=== PATIENT | female | born 1995 | race Caucasian/White ===

== ENCOUNTER 2024-12-22 03:44 | Emergency (ER) | payer BC, SELFPAY ==
[2024-12-22 03:50] VITALS: BP 158/87; PULSE 87; RESP 16; TEMP 36.7; O2SAT 99
[2024-12-22 05:34] VITALS: BP 129/69; PULSE 85; RESP 16; O2SAT 98
--- NOTE | 2024-12-22 05:34 | ED.EAR ---
HPI - Ear Problem General Chief complaint: Ear Stated complaint: ear pain Time Seen by Provider: 12/22/24 05:14 Source: patient Mode of arrival: ambulatory Limitations: no limitations History of Present Illness HPI Narrative: 29 yo Patient at approximately 28 weeks gestatational age ([place] [birth year]) presents with complaint of R ear pain, concerned for infection. Started having pain last night and planned to go to urgent care in the morning but continued to progress overnight. Described as constant and stablling. Took APAP about an hour before arrival and does note that the pain has started to improve while in the ED. Recently diagnosed with a left ear infection 2 weeks ago. Denies dizziness, nauesea. Took amoxicillin for previous ear infection. [place] like she might be having some drainage from the right ear. No complications during this . No history of hypertension prior to or during . ObGyn Dr Solano. No chills and technically afebriel though notes temperature was 99.7 at home. No rhinorrhea or cough. No sore throat. Related Data Allergies Allergy/AdvReac Type Severity Reaction Status Date / Time varicella virus vaccine live AdvReac Intermediate Rash Verified 12/22/24 03:45 [facility] Past Medical History Medical History (Updated 12/24/24 @ 16:37 by Stefanie Shine MD) Infection of left ear November 2024 and not yet delivered Exam Narrative: GENERAL: Well-appearing, well-nourished, and in no acute distress. HEAD: Normocephalic, atraumatic. EYES: Non injected, non icteric ENT: Nares clear, no rhinorrhea or epistaxis. Gross auditory acuity intact. R ear with some tenderness to palpation/manipulation of the pinna/auricle but without dawood erythema there. In the R auditory canal however there is erythema and drainage. Difficult to fully visualize TM on this side due to discomfort patient experiencing with exam. L ear normal. No dysphonia. NECK: Supple. No meningismus. CHEST: Speaking in full sentences. No respiratory distress. HEART: Regular rate and rhythm. . ABDOMEN: Soft. Gravid. Not peritoneal EXTREMITIES: Normal range of motion. No lower extremity edema. SKIN: Warm, dry, no rash. NEURO: No focal deficits. Alert and oriented. Answering questions. Following commands. Normal speech without aphasia or dysarthria. PSYCH: Normal mood and affect. Course Vital Signs Vital signs: Vital Signs Temperature 98.0 F 12/22/24 03:50 Pulse Rate 87 12/22/24 03:50 Respiratory Rate 16 12/22/24 03:50 Blood Pressure 158/87 H 12/22/24 03:50 Pulse Oximetry 99 12/22/24 03:50 Oxygen Delivery Room Air 12/22/24 03:50 Temperature 98.0 F 12/22/24 03:50 Pulse Rate 90 12/22/24 06:13 Respiratory Rate 16 12/22/24 06:13 Blood Pressure 123/77 12/22/24 06:13 Pulse Oximetry 98 12/22/24 06:13 Oxygen Delivery Room Air 12/22/24 03:50 Medical Decision Making MDM Narrative Medical decision making narrative: female at gestational age 28 weeks and 2 days by stated estimated due date 03/11/2025 presents with acute onset R ear pain concerning for infection. Recent infection in L ear , completing antibiotics. Her plan was to go to in the morning but pain progressed. 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 In the emergency department she is afebrile with vital signs notable for hypertension initially. Difficult to fully visualize R TM based on pain but highly suspicious for otitis externa given otalgia, tenderness of the pinna, ear canal edema and erythema as well as otorrhea. Repeat blood pressure is checked and is markedly improved, now 129/69. Low suspicion for preeclampsia and I suspect that the initial BP was due to pain and concern. Will defer further work up. Prescribed ofloxacin and APAP. Advised follow up with her ObGyn. In addition, given 2 ear infections within a month in an otherwise healthy adult female (other than mild immunosuppresion in the setting of ), given contact information for ENT. Stable for discharge. Differential Diagnosis Differential Diagnosis: otitis media, otitis externa, necrotizing; considered mastoiditis, pharyngitis, acute viral syndrome, etc. Vital Signs Vital Signs: Vital Signs Temperature 98.0 F 12/22/24 03:50 Pulse Rate 87 12/22/24 03:50 Respiratory Rate 16 12/22/24 03:50 Blood Pressure 158/87 H 12/22/24 03:50 Pulse Oximetry 99 12/22/24 03:50 Oxygen Delivery Room Air 12/22/24 03:50 Temperature 98.0 F 12/22/24 03:50 Pulse Rate 90 12/22/24 06:13 Respiratory Rate 16 12/22/24 06:13 Blood Pressure 123/77 12/22/24 06:13 Pulse Oximetry 98 12/22/24 06:13 Oxygen Delivery Room Air 12/22/24 03:50 Discharge Plan Discharge Clinical Impression: Acute otitis externa of right ear, Third trimester at less than 36 weeks Patient Disposition: Home Condition: Stable Instructions: Antibiotic Form, Earache (ED), at 27 to 30 Weeks (ED) Additional Instructions: Abstain from water sports for 7-10 days. Avoid Q-tip or other foreign objects in the ear. Acetaminophen is safe to take during . Instill the antibiotic medication/drops into the ear while laying on your side and hold position for 3-5 minutes. Given that this represents your 2nd ear infection, I recommend you follow up with PCP or ENT in 1-2 weeks. The name of a doctor is listed below. Keep your upcoming OB appointment. Return to the emergency department with any new or worsening symptoms. Patient Language: Estonian Prescriptions: New acetaminophen 500 mg capsule 1,000 mg PO Q6H PRN (Reason: pain) Qty: 30 0RF ofloxacin 0.3 % drops 5 drp RIGHT EAR BID 7 Days Qty: 5 0RF Follow-up/Referrals: Talat Solano MD [Physician] - Calderon Howard MD [Physician] - (ear/nose/throat (ENT)) PHYSICIAN,CONSERVATION ENFORCEMENT OFFICER [Primary Care Provider] - Issa Gonzalez MD [Physician] - (family practice/primary care) Stand Alone Forms: Work/School Release IP Time of Disposition: 05:55
--- OUTSIDE RECORDS SUMMARY | 2024-12-22 05:45 | XMS_ITS | Data Portability ---
Author Organization [facility] Address [address] [place] [address] [place] [address] Assessment Encounter Date Assessment Date Assessment LastModified by Organization Details LastModified Time 10/25/2024 10/25/2024 Patient is ___weeks . Discussed plan. [email or web address] Not available 10/25/2024 10:43:46 11/21/2024 11/21/2024 Patient is ___weeks . Discussed plan. Not available 11/21/2024 16:46:20 12/19/2024 12/19/2024 Patient is ___weeks . Discussed plan. Not available 12/19/2024 16:01:56 Plan of Treatment Reminders Order Date Submit Date Provider Last Modified By Organization Details Last Modified Time Details Appointments OB ROUTINE 2024 09:15A Navneet SOLANO MD Not available Not available Not available OB ROUTINE 2024 09:15A Navneet SOLANO MD Not available Not available Not available Lab None recorded. Referral None recorded. Procedures None recorded. Surgeries None recorded. Imaging US, obstetric , 2nd or 3rd trimester 2024 025 [email or web address] [place], [address], [place], [address], 10/25/2024 20:06:33 Medication Orders None recorded. Patient TargetsNo targets recorded. Patient InstructionsNo instructions recorded. Reason for Referral None Reported. Results Created Date Observation Date Name Description Value Unit Range Abnormal Flag Note LastModifiedBy Organization Detail LastModifiedTime 09/08/192025 [UNIT Y] ANEUP LOIDY NIPT fraction 6.4% normal Not Available [facility] [address] [facility], [place], [address], 09/07/2024 03:23:33 09/08/19 25 09/07/2024 [UNIT Y] ANEUP LOIDY NIPT 22Q11.2 microdeletio n LOW RISK <1 in 10,000 normal Not Available [facility] [address] [facility], [place], [address], 09/07/2024 03:23:33 09/08/19 25 09/07/2024 [UNIT Y] ANEUP LOIDY NIPT sex chromosome aneuploidy NOT DETECT ED normal Not Available [facility] [address] [facility], [place], [address], 09/07/2024 03:23:33 09/08/19 25 09/07/2024 [UNIT Y] ANEUP LOIDY NIPT monosomy X LOW RISK <1 in 10,000 normal Not Available [facility] [address] [facility], [place], [address], 09/07/2024 03:23:33 09/08/19 25 09/07/2024 [UNIT Y] ANEUP LOIDY NIPT trisomy 13 LOW RISK <1 in 10,000 normal Not Available [facility] [address] [facility], [place], [address], 09/07/2024 03:23:33 09/08/19 25 09/07/2024 [UNIT Y] ANEUP LOIDY NIPT trisomy 18 LOW RISK <1 in 10,000 normal Not Available [facility] [address] [facility], [place], [address], 09/07/2024 03:23:33 09/08/19 25 09/07/2024 [UNIT Y] ANEUP LOIDY NIPT trisomy 21 LOW RISK <1 in 10,000 normal Not Available [facility] [address] [facility], [place], [address], 09/07/2024 03:23:33 09/08/19 25 09/07/2024 [UNIT Y] ANEUP LOIDY NIPT sex FEMALE normal Not Available [facility] [address], [place], [address], 09/07/2024 03:23:33 09/08/19 25 09/07/2024 [UNIT Y] ANEUP LOIDY NIPT gestation SINGLE TON normal Not Available [facility] [address], [place], [address], 09/07/2024 03:23:33 09/08/19 25 09/07/2024 [UNIT Y] ANEUP LOIDY NIPT for detailed report, see pdf See PDF normal Not Available [facility] [address] [place], [address], 09/07/2024 03:23:33 09/01/19 25 08/31/2024 CULTU RE: URINE result report SEE RESULT S BELOW abnormal Test: Cultu re: Urine Speci men Sourc e: Urine - Clean Catch Speci men Type: Urine Speci men Date: 1341 Resul t Date: 9 Resul t Statu s: Final resul t Abnor mal: Yes Bobby romero Lab: [facility] [address] [facility] [address] Tel: CULTU RE ----- ----- ----- --- >100, 000 CFU/m l Esche vinny a coli (Abno rmal) OSWALDOCE PTIBI LITY ----- ----- ----- --- Esche vinny a coli METHO D SUSY ----- ----- ----- ----- ----- ---- ----- ----- ----- ----- ----- AMPIC ILLIN <=8 ug/mL Susce ptibl e AMPIC ILLIN /SULB ACTAM <=4 ug/mL Susce ptibl e AZTRE ONAM <=4 ug/mL Susce ptibl e CEFAZ CEASAR <=2 ug/mL Susce ptibl e CEFEP TARIQ <=2 ug/mL Susce ptibl e CEFTA ZIDIM E <=1 ug/mL Susce ptibl e CEFTR IAXON E <=1 ug/mL Susce ptibl e CIPRO FLOXA MINI <=0.2 5 ug/mL Susce ptibl e GENTA MICIN <=2 ug/mL Susce ptibl e LEVOF LOXAC IN <= 0.5 ug/mL Susce ptibl e MEROP ENEM <=1 ug/mL Susce ptibl e NITRO FURAN TOIN <=32 ug/mL Susce ptibl e PIPER ACILL IN/TA ZOBAC BLANCAS <=8 ug/mL Susce ptibl e TOBRA MYCIN <=2 ug/mL Susce ptibl e TRIME THOPR IM/MCCLELLAN LFAME THOXA ZOLE <=0.5 ug/mL Susce ptibl e Not Available [facility] (Lab) [address] [facility], [place], [address], 09/02/2024 23:02:41 09/01/19 25 08/31/2024 drug scree n, urine Amphetamines : negati ve Not Available [place] [address], [place], [address], 08/31/2024 14:25:23 09/01/19 25 08/31/2024 drug scree n, urine Cannabinoids : negati ve Not Available [place] [address], [place], [address], 08/31/2024 14:25:23 09/01/19 25 08/31/2024 drug scree n, urine Cocaine: negati ve Not Available [place] [address], [place], [address], 08/31/2024 14:25:23 09/01/19 25 08/31/2024 drug scree n, urine Opiates: negati ve Not Available [place] [address], [place], [address], 08/31/2024 14:25:23 09/01/19 25 08/31/2024 drug scree n, urine Phenocyclidi ne: negati ve Not Available [place] [address], [place], [address], 08/31/2024 14:25:23 09/01/19 25 08/31/2024 drug scree n, urine Barbiturates : negati ve Not Available [place] [address], [place], [address], 08/31/2024 14:25:23 09/01/19 25 08/31/2024 drug scree n, urine Benzodiazepi amanda: negati ve Not Available [place] [address], [place], [address], 08/31/2024 14:25:23 09/01/19 25 08/31/2024 drug scree n, urine Ethanol: negati ve Not Available [place] [address], [place], [address], 08/31/2024 14:25:23 09/01/19 25 08/31/2024 drug scree n, urine Hallucinogen s: negati ve Not Available [place] [address], [place], [address], 08/31/2024 14:25:23 09/01/19 25 08/31/2024 drug scree n, urine Inhalants: negati ve Not Available [place] [address], [place], [address], 08/31/2024 14:25:23 09/01/19 25 08/31/2024 drug scree n, urine Anabolic Steroids: negati ve Not Available [place] [address], [place], [address], 08/31/2024 14:25:23 09/01/19 25 08/31/2024 US, obste tric, nucha l trans lucen cy No observ ation [facility]. [email or web address] [address], [place], [address], 08/31/2024 17:49:37 09/01/19 25 08/31/2024 US, obste tric, follo w-up No observ ation record ed. [email or web address] [address], [place], [address], 09/03/2024 22:38:24 10/26/19 25 10/25/2024 US, obste tric, 2nd or 3rd trime ster No observ ation record ed. [email or web address] [place] [address], [place], [address], 10/25/2024 12:50:56 10/26/19 25 10/25/2024 US, obste tric, follo w-up No observ ation record ed. [email or web address] [address], [place], [address], 11/15/2024 15:19:40 Result Notes None recorded. Problems Name Problem SNOMED Code Status Onset Date Resolution Date Notes Provider Name and Address Organization Details Recorded Time Body mass index 30+ - obesity 082612489 Active Weekly testing at 37wks Ada Cev[facility] 12:10:25 Body mass index 30+ - obesity 518616751 Active Weekly testing at 37wks Ada zavala [facility] 12:10:25 99250127 Active 2024 Bibiana zavala, [facility] 5 11:29:12 Problem Notes None recorded. Procedures Surgical History Date Name Laterality Status Provider Name and Address Organization Details Recorded Time 04/04/20 24 Date of Last Pap Smear completed Bibiana Vargas [facility] 08/02/2024 10:05:31 03/23/20 24 Nexplanon Removal completed SAUL STRINGER MD [address], [place], [address], [facility] 03/23/2024 15:00:27 03/25/20 21 Control Implant Insertion completed Rayne Machado [facility]- [address], [place], [address], [facility] 03/25/2021 16:01:20 05/30/19 13 extraction of wisdom tooth completed Gabriela Rey [facility] 03/21/2023 12:12:57 05/30/19 09 Appendectomy completed Gabriela Rey [facility] 03/10/2021 11:47:31 05/30/19 06 tonsilectomy/mounika noids completed Gabriela Rey [facility] 03/10/2021 11:48:41 Imaging Results None recorded. Procedure Notes None recorded. Medical Equipment None Reported. Allergies Allergen ID Allergen Name Allergen Category Reaction Reaction Severity Criticality Documentation Date Start Date Code Code System Note Provider Name and Address Organization Details Recorded Time varicella zoster immune globulin (human) medicatio n swelling Not available Not available 03/10/2021 84877 6 RxNorm Gabriela zavala, [facility] 11:42:33 Medications Name Sig Start Date Stop Date Status Note LastModified by Organization Details LastModified Time cyclobenzap rine 10 mg tablet TAKE 1 TABLET BY MOUTH THREE TIMES DAILY NEEDED FOR MUSCLE SPASM 03/16 completed Not Available Not Available Not Available ibuprofen 800 mg tablet TAKE 1 TABLET BY MOUTH THREE TIMES DAILY NEEDED FOR PAIN 03/16 completed Not Available Not Available Not Available metronidazo le 500 mg tablet Take 1 tablet twice a day by oral route for 7 days. 03/23 completed Not Available Not Available Not Available amoxicillin 875 mg tablet TAKE 1 TABLET BY MOUTH TWICE DAILY FOR 10 DAYS active Not Available Not Available No t Available cephalexin 500 mg capsule TAKE 1 CAPSULE BY MOUTH FOUR TIMES DAILY FOR 7 DAYS 11/21 completed Not Available Not Available Not Available promethazin e 25 mg tablet Take 1 tablet every 4 hours by oral route. 08/31 completed Not Available Not Available Not Available Diflucan 200 mg tablet 1 tablet every other day x 3 doses 03/23 completed Not Available Not Available Not Available nitrofurant oin monohydrate /macrocryst als 100 mg capsule TAKE 1 CAPSULE BY MOUTH EVERY 12 HOURS FOR 7 DAYS 11/21 completed Not Available Not Available Not Available active Not Available Not Avai lable Not Available Vyvanse 30 mg capsule TAKE 1 CAPSULE BY MOUTH DAILY 10/17 completed Not Available Not Available Not Available lisdexamfet amine 50 mg capsule TAKE 1 CAPSULE BY MOUTH EVERY MORNING NEEDED 11/21 completed Not Available Not Available Not Available Nexplanon 68 mg subdermal implant Inject by subcutane ous route. 04/04 completed Not Available Not Available Not Available ID NOW COVID-19 Test Kit TEST DIRECTED 03/15 completed Not Available Not Available Not Available Vitals Date Recorded Body height Body height Body mass index (BMI) Body weight Systolic And Diastolic Provider Name and Address Organization Details Last Updated DateTime 09/27/2024 179.07 cm 179.07 cm 37.8 kg/m2 660690.1 6 g 124/72 mm[Hg] Bibiana Vargas [facility] 10:44:03 Date Recorded Body height Body mass index (BMI) Body weight Systolic And Diastolic Provider Name and Address Organization Details Last Updated DateTime 10/25/2024 179.07 cm 39.7 kg/m2 899799.74 g 126/84 mm[Hg] DIANA Hercules [facility] 10/25/2024 10:44:42 Date Recorded Body weight Systolic And Diastolic Provider Name and Address Organization Details Last Updated DateTime 11/21/2024 204087.00933 g 130/83 mm[Hg] Bibianabessie Choudhuryer [facility] 11/21/2024 16:46:45 Date Recorded Body weight Systolic And Diastolic Provider Name and Address Organization Details Last Updated DateTime 12/19/2024 541271.98425 g 132/80 mm[Hg] Bibiana Sam [facility] 12/19/2024 16:12:34 Social History Question Answer Notes LastModified by Organizat ion Details LastModified Time Tobacco Smoking Status Never Smoker [facility] 03/16/2022 14:11:28 Do You Have An Advance Directive? No Information n ot available 03/16/2022 If You Are , What Was Your Level Of Alcohol Consumption Prior To ? Occasional Information not available 03/16/2022 How Many Years Have You Consumed Alcohol? 8 Information not available 03/16/2022 Are You Blind Or Do You Have Difficulty Seeing? No [email or web address] Information n ot available 03/10/2021 What Is Your Level Of Caffeine Consumption? Occasional [email or web address] Information not available 03/10/2021 How Much Tobacco Do You Chew? None Information not available 03/16/2022 In The 14 Days Before Symptom Onset, Have You Had Close Contact With A Laboratory-confirm ed COVID-19 While That Case Was Ill? No [email or web address] Information n ot available 03/10/2021 In The 14 Days Before Symptom Onset, Have You Had Close Contact With A Person Who Is Under Investigation For COVID-19 While That Person Was Ill? No [email or web address] Information not available 03/10/2021 Have You Been To An Area Known To Be High Risk For COVID-19? No [email or web address] Information not available 03/10/2021 Are You Deaf Or Do You Have Serious Difficulty Hearing? No [email or web address] Information not available 03/10/2021 What Type Of Diet Are You Following? REGULAR [email or web address] Information n ot available 03/10/2021 What Is The Highest Grade Or Level Of School You Have Completed Or The Highest Degree You Have Received? [id number] Information not available 03/16/2022 Are There Any Guns Present In Your Home? No Information not available 03/16/2022 Have You Ever Been Counseled For Unhealthy Alcohol Use? No Information not available 03/16/2022 Do You Use Protection During Sex? Always Information not available 03/16/2022 Do You Use Your Seat Belt Or Car Seat Routinely? Yes [email or web address] Information not available 03/10/2021 Do You Have Smoke And Carbon Monoxide Detectors In Your Home? Yes [email or web address] Information not available 03/10/2021 At What Age Did You Start Smoking Tobacco? 21 Information not available 03/16/2022 How Much Tobacco Do You Smoke? No Information not available 03/16/2022 Do You Use Sunscreen Routinely? Yes [email or web address] Information not available 03/10/2021 Has Tobacco Cessation Counseling Been Provided? No Information not available 03/16/2022 How Many Years Have You Smoked Tobacco? 1 Information not available 03/16/2022 Have You Used IV Drugs? No Information not available 03/16/2022 Sex: Female Functional Status Question Answer Note LastModified by Organizat ion Details LastModified Time Do you use any illicit or recreational drugs? No [email or web address] Information not available 03/10/2021 Do you or have you ever used any other forms of tobacco or nicotine? No Information not available 03/16/2022 What is your level of alcohol consumption? Occasional [email or web address] Information not available 03/10/2021 Are you able to walk? [email or web address] Information not available 03/10/2021 What is your occupation? [employer] Information not available 03/16/2022 What is your exercise level? Moderate Information not available 03/16/2022 Mental Status Question Answer Note LastModified by Organization D etails LastModified Time Do you feel stressed (tense, restless, nervous, or anxious, or unable to sleep at night)? [id number] Information not available 03/16/2022 Family History Relationship Description Onset Age of this Age Resolved Age Notes LastModified by Organization Details LastModified Time Maternal Grandmother Malignant tumor of breast [email or web address] Not available 03/10 11:45:12 Maternal Grandmother Malignant neoplasm of lung Not available 03/10 11:45:23 Maternal Grandmother Malignant neoplasm of brain [email or web address] Not available 2021 13:55:05 Mother Cyst of ovary Not available 2021 13:55:05 Medical History Condition Response Allergies (Food, seasonal, environmental ) N Other Y Breast Cancer N Drug/Latex Allergies/Reactions Y Blood Transfusion N Dermatologic Disorders N Lung Disease N Defects or Inherited Disease N Breast Problem N Gestational Diabetes N Hematologic disorders N Anesthesia Complications N History of STI N Deep Vein Thrombosis N Polycystic ovary syndrome N Anxiety Disorder N Autoimmune disease N Arthritis N Infertility N Polyps N Acid Reflux (GERD) N History of abnormal pap N Cancer N Stroke N Varicosities N Neurologic/Epilepsy N Endometriosis N High Cholesterol N Headaches N Fibromyalgia N Kidney Disease N Heart Problems N Kidney or Bladder Problems N Thyroid Problems N GI Problems N Eating Disorder N Anemia N Art (IVF or FET) N Psychiatric Illness N Ovarian Cancer N Diabetes N Pulmonary (TB, Asthma) N Hepatitis/Liver Disease N No Past Medical History N Eczema N Urinary Tract Infection N Abuse/Domestic Violence N Asthma N Trauma/Violence N Depression/ depression N Heart Disease N Pre-Eclampsia N Hypertension N Osteoporosis N Thrombophilias N Gynecological History Statement/Question Response Date of Last Mammogram Flow Moderate Date of LMP 05/30/2024 N Was last menstrual period normal Y STIs/STDs N Date of Last Colonoscopy Desired Control Method Abnormal Pap N On BCP's at Conception? N Colposcopy HPV Vaccine N Duration of Flow (days) 4 Current Control Method Are cycles usually normal N Frequency of Cycle (Q days) Sexually Active? Y Menses Monthly N Date of DEXA bone scan Age of first menstrual cycle 13 Date of Last Pap Smear 04/04/2024 Sexual Problems? N LMP Approximate N Obstetrics History GPAL:G 1 P 0 0 0 0 Type Value Living 0 Total 1 Past Encounters Encounter ID Performer Location Encounter Start Date Encounter Closed Date Diagnosis/Indication Diagnosis SNOMED-CT Code Diagnosis ICD10 Code Diagnosis Note [id number] Rayne Machado , [facility] [address] [place] [id number] 03/10/2021 11:19:30 03/12/2021 11:13:10 Gynecologic examination 49978419 Z01.419 Take Calcium with Vitamin D 1200mg daily if not receiving in daily diet. It is strongly advised to have an annual flu shot and up can obtain at most pharmacies . If you have not had a TDap shot in the last 10 years you should obtain one as well. Discussed with patient & provided with informatio n regarding Gardisil vaccine to prevent the 4 strains for HPV that cause cervical cancer if under age 26. Encourage safe sexual practices, to use condoms and limit partners if not already in a monogamous relationsh ip. Do monthly self breast exams. Have mammogram yearly or every other year depending on family history. BRCA testing is now available for patients with strong genetic history of female cancer. If interested contact the office. Engage in daily exercise of low impact aerobic exercise 45-60 minutes 4-5 times weekly. Avoid tobacco and illicit drugs as well as using moderation with alcohol intake less than 1-2 8 oz beverages daily. This lifestyle behavior pattern will lead to less health conditions and longer life span. If BMI greater than 25 weight watchers or dietary consult advised. Patient received above instructio ns, and questions have been answered. If you have any questions please call or respond to this email. Patient was made aware of the patient portal and may obtain a paper copy of today's plan if desired. Pap sentSTD sent Vaginitis 69985359 N76.0 Prominent vaginal d/c likely BV/Yeast.L ikely cause of pain with intercours e.Will treat.Test STDRTO x 2wks to ensure no other contributi ng factors to dyspareuni a as exam was somewhat limited today b/c so uncomforta ble. [id number] Rayne Machado , [facility] [address] [address] 03/25/2021 14:47:32 03/25/2021 16:06:39 Contraception care management 934965957 Z30.9 Discussed all control options in depth and pt is interested in Nexplanon. Discussed all risks and benefits including irregular unschedule d bleeding. Pt verbalized understand ing and would like to proceed. She is aware that she needs to call us on the 1st day of her period to schedule placement. Currently on her menstrual cycle.We Re-reviewe d nexrudy & she would like to proceed today. Note: Pain with intercours e has resolved after treatment for BVYeast. Implantati on of subcutaneous contraceptive 923651222 Z30.9 Patient is here currently on her menses. She was given all the r/b/a of placement of the Nexplanon device and has signed the consent. She is fully aware of all possible side effects of the device and has decided to move forward with placement. Insertion site was cleansed with betadine and 3cc lidocaine used for anesthesia . Device was placed in the left arm per usual fashion w/o complicati on and patient instructed to f/u in one month or earlier if there are any si/sx of infection or hypersensi tivity at the insertion site RTO x 3mos Screening procedure 2012 5006 Z13.9 [id number] Rayne Machado [facility] [address] [address] 03/16/2022 13:54:11 03/16/2022 14:40:14 Gynecologic examination 74604685 Z01.419 Z11.3 Z11.8 Take Calcium with Vitamin D 1200mg daily if not receiving in daily diet. It is strongly advised to have an annual flu shot and up can obtain at most pharmacies . If you have not had a TDap shot in the last 10 years you should obtain one as well. Discussed with patient & provided with informatio n regarding Gardisil vaccine to prevent the 4 strains for HPV that cause cervical cancer if under age 26. Encourage safe sexual practices, to use condoms and limit partners if not already in a monogamous relationsh ip. Do monthly self breast exams. Have mammogram yearly or every other year depending on family history. BRCA testing is now available for patients with strong genetic history of female cancer. If interested contact the office. Engage in daily exercise of low impact aerobic exercise 45-60 minutes 4-5 times weekly. Avoid tobacco and illicit drugs as well as using moderation with alcohol intake less than 1-2 8 oz beverages daily. This lifestyle behavior pattern will lead to less health conditions and longer life span. If BMI greater than 25 weight watchers or dietary consult advised. Patient received above instructio ns, and questions have been answered. If you have any questions please call or respond to this email. Patient was made aware of the patient portal and may obtain a paper copy of today's plan if desired. Pap/hpv due q3yrs per asccp unless otherwise indicated STD Screen declined Genetic Screen discussed Colon Screen na Dexa Screen na Routine Labs PCPMammo [id number] SAUL STRINGER MD [place] [address] [address] 03/23/2024 14:25:14 03/23/2024 15:06:33 Removal of subcutaneous contraceptive 797292860 Z30.46 - Nexplanon removed intact without any issues- discussed quick return to fertility after removal- discussed most couples will be within 1 year of TTC- patient to call for workup sooner if not having regular cycles [id number] JUANITA Carballo [place] [address] [address] 03/21/2023 11:58:58 03/21/2023 12:39:03 Gynecologic examination 94416583 Z01.419 WWEBC - nexplanon, happy with this methodinse rted 03/25/2021 , will 03/25/2024 pap due 02/2024STI testing declineden couraged to est care with PCP - PCP list givenRTC in 1 yr or sooner if needed Take Calcium with Vitamin D daily if not receiving in daily diet.It is strongly advised to have an annual flu shot and up can obtain at most pharmacies . If you have not had a TDap shot in the last 10 years you should obtain one as well.Discu ssed with patient & provided with informatio n regarding Gardisil vaccine to prevent the 4 strains for HPV that cause cervical cancer if under age 26.Encoura ge safe sexual practices, to use condoms and limit partners if not already in a monogamous relationsh ip.Do monthly self breast exams.Have mammogram yearly or every other year depending on family history. BRCA testing is now available for patients with strong genetic history of female cancer. If interested contact the office.Eng age in daily exercise of low impact aerobic exercise 45-60 minutes 4-5 times weekly. Avoid tobacco and illicit drugs as well as using moderation with alcohol intake less than 1-2 8 oz beverages daily. This lifestyle behavior pattern will lead to less health conditions and longer life span. If BMI greater than 25 weight watchers or dietary consult advised.Fazal recio received above instructio ns, and questions have been answered. If you have any questions please call or respond to this email.Roxie jeff was made aware of the patient portal and may obtain a paper copy of today's plan if desired. [id number] JUANITA Carballo [place] [address],[place] [address] 10/18/2023 12:02:24 10/18/2023 12:51:01 Tenderness of breast [id number] N64.4 recommende d right breast u/sorder given to pt, encouraged pt to schedule Contracept ion care management [id number] Z30.9 BC options reviewedde sires nexplanon removal, can schedule to RTCquestleeroy ns answered Time spent in visit is a total of 25 mins with at least 50% of visit consisting of counseling and review of plan of care. Breast lump [id number] N63 .0 [id number] Talat Solano MD [place] [address] [address] 04/04/2024 12:11:11 04/04/2024 12:58:17 Gynecologic examination [id number] Z01.419 Annual gynecologi andre exam performed. Patient will come back in a year unless there are new symptoms. Suggest Calcium with Vitamin D if not eating in diet. Patient advised to get annual flu shot. Recommend yearly physicals and perform monthly breast exams. Genetic testing is available for patients with family history of cancer. Engage in safe sexual practices, use condoms. Encouraged to have daily exercise. Avoid tobacco and illicit drugs, moderation of alcohol. If BMI greater than 25 dietary consult advised. If you have any questions please call or email. Pap smear- pap w/ HPV reflex collected today. If WNL, will repeat in 3-5 years per ASCCP guidelines . laboratory evaluation - PCP STI testing - declined Recommende d that pt start PNV daily and track cycles with Shaka Porter. Discussed that cycles may be irregular for a few months after having implant removed. [id number] Talat Solano MD [place] [facility] [address] [address] 07/17/2024 09:35:45 07/17/2024 10:30:30 screening [id number] Z36.87 Z3A.01 [id number] Talat Solano MD [place] [facility] [address],[place] [address] 08/02/2024 09:12:39 08/02/2024 10:10:10 [id number] Talat Solano MD [place] [facility] [address],[place] [address] 08/02/2024 09:13:02 08/02/2024 10:57:06 Nausea and vomiting [id number] R11.2 Amenorrhea [id number] N91. 2 this patient is a 28-year-ol d female who presents for amenorrhea . She is a positive test. Ultrasound revealed a 1st trimester gestation. Patient has no complaints . We talked about early care. Talked about genetic screening. We talked about her ultrasound results. We talked about the 12 week ultrasound that has genetic screening components . She was given recommenda tions on exercise, diet, over-the-c ounter medication s. We reviewed her obstetric history. We reviewed her medical history. We reviewed her social history. She will begin routine care at her next visit. [id number] MD Ivan Pearl [address],[place] [address] 08/31/2024 09:52:09 08/31/2024 10:36:11 screening [id number] Z36.82 Z3A.12 [id number] Talat Solano MD [place] [address],[place] [address] 08/31/2024 09:52:44 08/31/2024 12:10:40 Routine care [id number] Z34.90 Gestation period, 12 weeks [id number] Z3A.12 [id number] Talat Solano MD [place] [facility] [address],[place] [address] 09/27/2024 09:20:32 09/27/2024 21:40:26 [id number] Talat Solano MD [place] [address],[place] [address] 09/27/2024 10:35:13 09/27/2024 11:00:13 Second trimester [id number] Z34.02 [id number] Talat Solano MD [place] [address],[place] [address] 10/25/2024 09:16:09 10/25/2024 10:33:00 screening for malformation [id number] Z36.3 Z3A.20 [id number] Talat Solano MD [place] [address],[place] [address] 10/25/2024 09:16:21 10/25/2024 11:28:39 Second trimester [id number] Z34.02 [id number] Talat Solano MD [place] [address],[place] [address] 11/21/2024 16:02:55 11/21/2024 17:23:10 Second trimester [id number] Z34.02 [id number] Talat Solano MD [place] [facility] [address],[place] [address] 12/19/2024 15:35:31 12/19/2024 16:32:14 Third trimester [id number] Z34.03 Health Concerns Section Related Observation LastModified by Organization Detai ls LastModified Time None Recorded Concern Status LastModified by Organization Details LastModified Time None Recorded Advance Directives Directive N: Payers Insurance Date Sequence Insurance Name Policy Number Policy Chaudhary Covered Member ID Chaudhary Member ID Guarantor Name 03/18/2023 1 [place] [id number] Martin Nielsen [id number] Tami Ordaz 12/17/2024 1 [place] [id number] Tami Ordaz [id number] Tami Ordaz Notes Date Note Type Note Provider Name and Address Organization Details Recorded Time 09/27/2024 text/html Generic HPI TemplateReported by Patient Talat Solano MD [address], [place], [address], [place] [facility] 09/27/2024 10:59:18 10/25/2024 text/html Generic HPI TemplateReported by Patient Talat Solano MD [address], [place], [address], [facility] 10/25/2024 11:17:25 11/21/2024 text/html Generic HPI TemplateReported by Patient Talat Solano MD [address], [place], [address], [facility] 11/21/2024 17:21:14 12/19/2024 text/html Generic HPI TemplateReported by Patient Talat Solano MD [address], [place], [address], [facility] 12/19/2024 16:31:40 OBGyn Episode Ob Episode Information Episode Created Date Number of Fetuses Patient Bloodtype Patient rh Status Prepregnancy Weight lbs Domestic Partner Domestic Partner Phone Father Name Professor Of Journalism Status 09/01/19 25 1 O Positive 252 Josh OPEN Fetus Data First Name Last Name Admitted to NICU Weight (g) Sex Living Outcome Pediatric Complications Fetus ID Race Codes Race Delivery Type [id number] Problems Problem Notes 32wks growth us Problem Name Start Date End Date Resolution Snomed Code Not e Body mass index 30+ - obesity [id number] Weekly antenata l testing at 37wks Fox Calculation Initial Fox Date Initial Exam Date Initial Exam Provider Initial Ultrasound Date Last Menstrual Period Date Ultra Sound Weeks Gestation 08/31/2024 08/02/2024 8 Eighteen To Twenty Week Fox Update Ultra Sound Date Fundal Height At Umbil Quickening Date Ultra Sound Latest Weeks Gestation Final Fox Confirmed By Final Fox Confirmed Date Final Fox Date Ultra Sound Latest Days Gestation 0 [email or web address] 08/31/2024 03/11/20 25 0 Pre-brisa Flowsheet Flowsheet Date 08/31/2024 Leroy Score Blood Edema Fundus Height Fundus Units Glucose Ketones Leukocytes Nitrite Labor Signs Protein Cervic Dilation Cervic Effacement Cervic Station Type Weight in lbs Pre/Post Dialysis Refused Weight 260.402841975592 BP Diastolic BP Location Tested BP Systolic BP Type 79 L arm 116 sitting Fetus Heart Rate Present Fetus Movement A No Comments this patient is a 28-year-ol d primiparous female at 12 weeks' gestation who presents for initial care. . Her medical, surgical, obstetric history is unremarkable. She is vaccinated. She was given precautions recommendations for . We talked about vaccines in . Talked about care in detail. She is having genetic testing. She had a normal 12 week ultrasound. To begin routine care. Flowsheet Date 09/27/2024 Leroy Score Blood Edema Fundus Height Fundus Units Glucose Ketones Leukocytes Nitrite Labor Signs Protein Cervic Dilation Cervic Effacement Cervic Station Type Weight in lbs Pre/Post Dialysis Refused BP Diastolic BP Location Tested BP Systolic BP Type Fetus Heart Rate Present Fetus Movement Comments Flowsheet Date 09/27/2024 Leroy Score Blood Edema Fundus Height Fundus Units Glucose Ketones Leukocytes Nitrite Labor Signs Protein Cervic Dilation Cervic Effacement Cervic Station 16 cm Type Weight in lbs Pre/Post Dialysis Refused Weight 267.670892285977 BP Diastolic BP Location Tested BP Systolic BP Type 72 R arm 124 sitting Fetus Heart Rate Present A 145 Present Fetus Movement A No Comments no complaints, no problems, routine care, no contractions, no vaginal bleeding, no loss of fluid, no cramping Flowsheet Date 10/25/2024 Leroy Score Blood Edema Fundus Height Fundus Units Glucose Ketones Leukocytes Nitrite Labor Signs Protein Cervic Dilation Cervic Effacement Cervic Station Type Weight in lbs Pre/Post Dialysis Refused BP Diastolic BP Location Tested BP Systolic BP Type Fetus Heart Rate Present Fetus Movement Comments Flowsheet Date 10/25/2024 Leroy Score Blood Edema Fundus Height Fundus Units Glucose Ketones Leukocytes Nitrite Labor Signs Protein Cervic Dilation Cervic Effacement Cervic Station neg none Type Weight in lbs Pre/Post Dialysis Refused Weight 280.291970220833 BP Diastolic BP Location Tested BP Systolic BP Type 84 L arm 126 sitting Fetus Heart Rate Present A 156 Fetus Movement A No Comments no complaints, no problems, routine care, no contractions, no vaginal bleeding, no loss of fluid, no cramping Flowsheet Date 11/21/2024 Leroy Score Blood Edema Fundus Height Fundus Units Glucose Ketones Leukocytes Nitrite Labor Signs Protein Cervic Dilation Cervic Effacement Cervic Station 25 cm Type Weight in lbs Pre/Post Dialysis Refused 294.598245663845 BP Diastolic BP Location Tested BP Systolic BP Type 83 L arm 130 sitting Fetus Heart Rate Present A 140 Present Fetus Movement A Yes Comments no complaints, no problems, routine care, no contractions, no vaginal bleeding, no loss of fluid, no cramping Flowsheet Date 12/19/2024 Leroy Score Blood Edema Fundus Height Fundus Units Glucose Ketones Leukocytes Nitrite Labor Signs Protein Cervic Dilation Cervic Effacement Cervic Station Type Weight in lbs Pre/Post Dialysis Refused 297.598127720210 BP Diastolic BP Location Tested BP Systolic BP Type 80 L arm 132 sitting Fetus Heart Rate Present A 142 Present Fetus Movement A Yes Comments no complaints, no problems, routine care, no contractions, no vaginal bleeding, no loss of fluid, no cramping Menstrual History Last Menstrual Date Menses Monthly On Bcp Conception Prior Menses Frequency Hcg Plus Date Menarche Onset Age Delivery Information Delivery Date Delivery Type Labor Anesthesia Weeks Gestation Incision Type Labor Labor Length Hrs Delivered By Post Complications Tubal Sterilization Discharge Date Comments Discharge Information Feeding Method Contraceptive Method Maternal HG B and HCT Levels
[2024-12-22 05:52] VITALS: BP 129/69; PULSE 82; O2SAT 99
[2024-12-22 06:13] VITALS: BP 123/77; PULSE 90; RESP 16; O2SAT 98
== END 2024-12-22 06:16 | disposition home or self-care (01) ==
PROVIDERS: Emergency Provider Student in an Organized Health Care Education/Training Program
DX: O26.893 Other specified pregnancy related conditions, third trimester (principal); H60.501 Unspecified acute noninfective otitis externa, right ear; Z3A.36 36 weeks gestation of pregnancy
CPT/HCPCS: 99283

== ENCOUNTER 2025-03-11 05:02 | Inpatient (IN) | payer BC, SELFPAY ==
[2025-03-11] VITALS (249 sets, daily range): BP systolic 80–172; BP diastolic 46–135; PULSE 65–152; TEMP 36.6–36.8; O2SAT 84–100; BMI 44.7
--- NOTE | 2025-03-11 05:24 | LDADM ---
This patient, Tami Ordaz, was admitted to Labor/Delivery/Recovery 103 on 03/11/25 at 05:02. Plans for labor, pain management and were discussed with patient. Patient/family oriented to hospital policies and general routines including ID bracelet, bed and alarms, visiting hours, pain management, procedures, bathroom and other care routines, personal items, smoking policy, room service/diet and guest tray routines, infant security routines, and visiting hours. Patient/Family are encouraged to report perceived risks to care and to ask questions if they do not understand what they are told or what they should do. See OBIX for further documentation.
[2025-03-11 05:47] LABS: Hematocrit 40.9 % (37.0-47.0); Hemoglobin 13.5 g/dL (12.0-15.0); Immature Granulocyte Percent A 0.9 % (0-0.5); Lymphocytes Absolute Auto 2.86 K/mm3 (0.9-3.2); Mean Corpuscular HGB Conc 33.0 g/dl (32-36); Mean Corpuscular Hemoglobin 28.5 pg (26-34); Mean Corpuscular Volume 86.5 fl (80-100); Nucleated Red Blood Cells Absolute Auto 0.000 K/mm3 (0.0-0.012); Nucleated Red Blood Cells Perc 0.0 % (0.0-0.2); Platelet Count Result 293 k/mm3 (150-375); Red Blood Count 4.73 M/mm3 (4.2-5.4); White Blood Count 12.8 K/mm3 (4.5-10.0)
[2025-03-11 06:28] LABS: Syphilis IgG/IgM Antibody Non-Reactive (Nonreactive)
--- NOTE | 2025-03-11 08:36 | WPDHPUPDATE1 ---
History and Physical Update Update Date/Time: 03/11/25 08:36 29-year-old primiparous female who at 40 weeks gestation presents for induction of labor. She has received a dose of Cytotec. She has a very unfavorable cervix. Pelvis is narrow and the is high in the pelvis. Reassuring status. Active management of labor. History and Physical has been reviewed, including an updated exam of the patient. There are NO changes in the patient's condition. Risks, benefits, and alternatives have been discussed and questions answered. Patient agrees to proceed with procedure.
--- NOTE | 2025-03-11 21:28 | P.PNOB_ITS ---
OB - PN: Subj Subjective Date/time seen: 03/11/25 21:28 Interval history: Artificial rupture of membranes-clear fluid 2 cm/50%/-3. Narrow pelvis. Reassuring status. To initiate Pitocin. OB - PN: Obj Data Labs 03/11/25 05:26 Labs: Laboratory Results - last 24 hr 03/11/25 05:26 WBC 12.8 H RBC 4.73 Hgb 13.5 Hct 40.9 MCV 86.5 MCH 28.5 MCHC 33.0 RDW 13.6 Plt Count 293 MPV 10.6 H Immature Gran % (Auto) 0.9 H Neut % (Auto) 69.8 Lymph % (Auto) 22.3 [place] % (Auto) 5.9 Eos % (Auto) 0.7 Baso % (Auto) 0.4 Lymph # (Auto) 2.86 [place] # (Auto) 0.8 H Eos # (Auto) 0.1 Baso # (Auto) 0.1 Abs Immat Gran (auto) 0.11 H Absolute Neuts (auto) 9.0 H Absolute Nucleated RBC 0.000 Nucleated RBC % 0.0 Syphilis IgG/IgM Ab Non-reactive Blood Type O Positive Antibody Screen Negative OB - PN A/P Time Spent With Patient Time: Total time spent is greater than 50% in coordination of care (as documented) at patient's floor/unit and/or counseling patient:
[2025-03-11] MEDS: LACTATED RINGERS 1,000 ML 125 ML IV CONT (23:41)
[2025-03-12] VITALS (355 sets, daily range): BP systolic 74–152; BP diastolic 35–122; PULSE 51–163; RESP 18; TEMP 36.6–37.7; O2SAT 81–100
--- NOTE | 2025-03-12 00:08 | P.PNAN_ITS ---
Anes - Initial Pre Proc Eval Procedure: Labor epidural Date/Time: 03/12/25 00:08 Surgeon: Talat Solano MD Pre Op Diagnosis: Labor pain Patient Data Age: 29 Gender: F Height: 1.78 m Weight: 141.36 kg Last Vital Signs Temp 36.8 C 03/11/25 12:00 Pulse 78 03/12/25 00:00 BP 119/75 03/12/25 00:00 Pulse Ox 99 03/12/25 00:06 O2 Del Method Room Air 03/11/25 05:22 Allergies Allergy/AdvReac Type Severity Reaction Status Date / Time varicella virus vaccine live AdvReac Intermediate Rash Verified 03/09/25 12:16 Home Medications ?Medication ?Instructions ?Recorded ?Confirmed ?Type vit no.95-ferrous 1 tablet PO DAILY 03/09/25 03/09/25 History fumarate 28 mg-folic acid 800 mcg tablet () Laboratory Tests 03/11/25 05:26 WBC 12.8 H K/mm3 (4.5-10.0) RBC 4.73 M/mm3 (4.2-5.4) Hgb 13.5 g/dL (12.0-15.0) Hct 40.9 % (37.0-47.0) MCV 86.5 fl (80-100) MCH 28.5 pg (26-34) MCHC 33.0 g/dl (32-36) RDW 13.6 % (11.5-14.5) Plt Count 293 k/mm3 (150-375) MPV 10.6 H fl (7.4-10.4) Immature Gran % (Auto) 0.9 H % (0-0.5) Neut % (Auto) 69.8 % (45.5-73.1) Lymph % (Auto) 22.3 % (18.3-44.2) [place] % (Auto) 5.9 % (2.6-8.5) Eos % (Auto) 0.7 % (0-4.4) Baso % (Auto) 0.4 % (0.2-1.2) Lymph # (Auto) 2.86 K/mm3 (0.9-3.2) [place] # (Auto) 0.8 H K/mm3 (0.1-0.6) Eos # (Auto) 0.1 K/mm3 (0-0.3) Baso # (Auto) 0.1 K/mm3 (0.0-0.1) Abs Immat Gran (auto) 0.11 H K/mm3 (0.00-0.031) Absolute Neuts (auto) 9.0 H K/mm3 (1.3-6.7) Absolute Nucleated RBC 0.000 K/mm3 (0.0-0.012) Nucleated RBC % 0.0 % (0.0-0.2) Syphilis IgG/IgM Ab Non-reactive (Nonreactive) Blood Type O Positive Antibody Screen Negative Patient hx anesthesia problems: none Family hx anesthesia problems: none Results Review: All pre-operative results and documents have been reviewed as part of the pre- operative evaluation. [facility] Past Medical History Medical History (Updated 12/24/24 @ 16:37 by Stefanie Shine MD) Infection of left ear November 2024 and not yet delivered Family History Family History (Updated 03/09/25 @ 12:10 by Savanah Miller RN) Father Acute myocardial infarction Social History Social History Smoking status: Never smoker Second hand tobacco smoke exposure: No Substance use: never Lack of Transportation: No Lack of Food: Never True Current Housing: I Have Housing Concerned About Future Housing: No Difficulty Paying Gas/Electric Bills: No Difficulty Paying for Meds: No Currently Unemployed: No Education: Bachelor's Degree Difficulty w/ Childcare or Family Care: No Spiritual care concerns: No Anes - Eval Final PreProcedure Day of Procedure 03/12/25 00:08 Heart: regular rate and rhythm Lungs: clear to auscultation and normal air movement Airway: Mallampati scale class II Neurological: alert and oriented ASA classification: III Anesthetic plan: proceed Anesthesia type and monitoring: regional epidural and standard monitoring Results Review: All pre-operative results and documents have been reviewed as part of the pre- operative evaluation. Informed Consent: The patient's anesthetic plan and its attendant risks and benefits were discussed with the patient/family/POA. Questions were solicited and answers provided to the satisfaction of the patient/family/POA.
[2025-03-12] MEDS: LACTATED RINGERS 1,000 ML 125 ML IV CONT ×3 (00:35→13:19)
[2025-03-12] MEDS: OXYTOCIN 30 UNITS/NS 500 ML 30 UNITS/500 ML BAG IV CONT (01:15)
[2025-03-12] MEDS: ONDANSETRON INJ 4 MG/2 ML VIAL IV PUSH (12:30)
--- NOTE | 2025-03-12 15:33 | PM.OBPNLAB ---
Pain Control Date/time seen: 03/12/25 15:33 Pain control: tolerating well and epidural Pelvic Exam Dilation (cm): 8 Effacement (%): 80 station: -2 Amniotic membrane status: Ruptured Comments: OP presentation Contractions Monitor mode: Internal Contraction frequency: 4 Contraction pattern: Irregular Status status: Category l Assessment and Plan Pitocin rate (mU/min): 8 Assessment: active labor Plan: continuous present management Comments: spinning babies to rotate from OP position; 18 hours s/p ROM, will start ampicillin for ppx
[2025-03-12] MEDS: AMPICILLIN SODIUM 2 GM in SODIUM CHLORIDE 0.9% IV 100 ML 200 ML IVPB (15:39)
[2025-03-12] MEDS: OXYTOCIN 30 UNITS/NS 500 ML 30 UNITS/500 ML BAG 125 UNITS IV CONT (18:56)
--- NOTE | 2025-03-12 19:34 | PM.OBPRVD ---
OB - Vaginal Delivery Note Procedure Delivery date: 03/12/25 Events: Elective Induction of Labor Induction method: Per Misoprostol Protocol Delivery augmentation: Rupture of Membranes and Pitocin Delivery monitor: External FHT and Internal Uterine Route of delivery: Episiotomy description: None Laceration Description: Perineal - 2nd Degree Delivery repair: vicryl Specimen: No Quantitative Blood Loss (ml): 150 Anesthesia type: Epidural Disposition: Floor Complications: No immediate complications Narrative: See H&P and notes for details on patient's admission and labor. She progressed to complete cervical dilation and at the appropriate time began pushing. With adequate expulsive efforts by the mother, the baby's head was delivered without difficulty. Nuchal cord was present x1 and was delivered through. The baby's left shoulder was anterior and delivered under the pubic symphysis without difficulty. The posterior shoulder and the rest of the baby delivered without difficulty. The umbilical cord was doubly clamped and cut after 60 seconds of delayed cord clamping. Care of the was then assumed by the nursing staff. Baby Date of : 03/12/25 Gestational Age by Date: 40 Infant gender: Female presentation: compound (right hand) position: Left Occiput Anterior Placenta delivery description: Expressed Cord Vessel Description: 3 Vessels and Nuchal Cord
[2025-03-12] MEDS: ACETAMINOPHEN 325 MG TABLET 650 MG PO (20:08)
[2025-03-12] MEDS: IBUPROFEN 600 MG TABLET PO (20:09)
[2025-03-12] MEDS: BENZOCAINE 20% AER SPR (*SP) 56 GM CAN 1 SPRAY TOPICAL (20:12)
[2025-03-12] MEDS: WITCH HAZEL 40 PADS 1 PAD TOPICAL (20:12)
--- NOTE | 2025-03-12 22:35 | OBPPTRN ---
Patient transferred to post room #287 via wheelchair. Support person present. Oriented to unit, room, information board, rooming in, admission packet and security measures. Patient verbalizes understanding.
[2025-03-13 03:50] VITALS: BP 135/79; PULSE 70; RESP 16; TEMP 36.7; O2SAT 100
[2025-03-13 05:27] LABS: Hematocrit 38.0 % (37.0-47.0); Hemoglobin 12.5 g/dL (12.0-15.0)
[2025-03-13 07:25] VITALS: BP 131/81; PULSE 75; RESP 16; TEMP 37.2; O2SAT 98
[2025-03-13] MEDS: DOCUSATE SODIUM 100 MG CAPSULE PO ×2 (07:28→16:20)
[2025-03-13] MEDS: IBUPROFEN 600 MG TABLET PO ×2 (07:28→16:20)
[2025-03-13] MEDS: MULTIVIT/MIN/PREN/FOL AC/IRON TABLET 1 TAB PO (07:28)
--- NOTE | 2025-03-13 07:34 | P.PNOB_ITS ---
OB - PN: Subj Subjective Date/time seen: 03/13/25 07:34 Interval history: PP #1 doing well denies c/o pain OB - PN: Obj Data Labs 03/13/25 03:49 Labs: Laboratory Results - last 24 hr 03/13/25 03:49 Hgb 12.5 Hct 38.0 OB - PN A/P Plan day: 1 Plan: routine care Time Spent With Patient Time: Total time spent is greater than 50% in coordination of care (as documented) at patient's floor/unit and/or counseling patient: Review of Systems 2 Review of Systems: All systems reviewed & are unremarkable except as noted in HPI and below Exam 2 Const: General: cooperative, healthy appearing and comfortable Chest: Chest palpation & inspection: normal inspection of the chest Resp: Effort & Inspection: normal respiratory effort Cardio: Rate: regular rate
[2025-03-13 12:04] VITALS: BP 111/67; PULSE 74; RESP 16; TEMP 36.9; O2SAT 98
[2025-03-13 20:00] VITALS: BP 116/64; PULSE 70; RESP 16; TEMP 36.9; O2SAT 98
--- NOTE | 2025-03-13 20:18 | PC.NURSE ---
1200 Consulted with patient to assess needs related to . Discussed with mother her successes, concerns and any questions she has. We reviewed working with the infant, supporting breast, protecting her nipples with an optimal deep latch, good positioning, and good hand washing. Encouraged understanding the benefits of skin to skin, responding to feeding cues, frequencies of feeding 8-12 times in 24 hours (approximately 2-3 hours), duration of feedings, milk production, intake/output feeding sheet and signs of adequate intake encouraging swallowing at the breast. Reviewed positioning and alignment, supporting breast, off-centered (asymmetrical latch) and leading with the chin with big, open, wide gape. latched optimally to the [right] breast in [cross cradle] position. Education given to the mother of how to visualize the suckling (with good rocking jaw motion) swallows (dropping of the lower jaw) and how to listen for drinking at the breast (the ka sound). The was [able] to maintain latch without discomfort to mother. Nipple care reviewed with optimal latch, good positioning and using clean hands when touching her breast. Resources used to facilitate learning were used from the [visual handouts/ tool/mom and baby guide]. Mother voiced understanding of the education shared, to call for assistance if the does not latch or if there is discomfort with . Reported to the Primary RN. 1610 Mother called out for CLC assistance with using the football hold, latched optimally to the [right] breast in [football] position. Education given again to the mother of how to visualize the suckling (with good rocking jaw motion) swallows (dropping of the lower jaw) and how to listen for drinking at the breast (the ka sound). The was [able] to maintain latch without discomfort to mother. Reported to Primary RN.
[2025-03-14] MEDS: DOCUSATE SODIUM 100 MG CAPSULE PO (02:48)
[2025-03-14] MEDS: IBUPROFEN 600 MG TABLET PO (02:48)
--- NOTE | 2025-03-14 08:07 | P.PNOB_ITS ---
OB - PN: Subj Subjective Date/time seen: 03/14/25 08:07 Interval history: PP #1 doing well denies c/o pain Patient comments: no complaints, pain well controlled and tolerating diet OB - PN: Obj Data Labs 03/13/25 03:49 OB - PN A/P Plan day: 2 Plan: routine care and discharge home Time Spent With Patient Time: Total time spent is greater than 50% in coordination of care (as documented) at patient's floor/unit and/or counseling patient: Exam 2 Const: General: comfortable and no acute distress Resp: Effort & Inspection: normal respiratory effort Auscultation: no rales, no rhonchi and no wheezes Cardio: Rate: regular rate Heart sounds: no click, no murmurs and no rubs GI: GI Palp: Yes Soft to palpation and No Tenderness to palpation present (GI) Auscultation: normal bowel sounds Extrem: General: normal to inspection, no pedal edema and no calf tenderness
--- NOTE | 2025-03-14 08:07 | P.DS_ITS ---
DS: Admitting Diagnosis Discharge Date 03/14/2025 Admitting Diagnosis Term DS: Discharge Diagnosis Discharge Diagnosis (1) Term delivered: Code(s): O80 - Encounter for full-term uncomplicated delivery Status: Acute OB - DS: Summary OB Procedures : None OB Procedures Intrapartum: Spontaneous Vag Delivery OB Procedures: : None Peripartum Data Laceration Description: Perineal - 2nd Degree Episiotomy description: None Time Spent with Patient Time attestation: Total time spent providing and/or coordinating discharge services: Discharge Plan Discharge Discharging Clinician: Talat Solano Patient Disposition: Home Activity: pelvic rest Diet: regular Patient Instructions: Antibiotic Form Patient Language: Tajik Stand Alone Forms: General Discharge Information Follow-up/Referrals: Talat Solano MD [Physician, HUMAN CAPITAL MANAGER] Discharge Medications: Continued PNV no.95-ferrous fumarate-FA [] 28 mg iron- 800 mcg tablet 1 tablet PO DAILY Date of admission: 03/11/25 05:02 Primary Care Provider: PHYSICIAN,DRAPERY [employer]MER [employer] Admitting Provider: Talat Solano Attending physician on admission: Talat Solano Condition: Stable
[2025-03-14 08:15] VITALS: BP 130/82; PULSE 73; RESP 16; TEMP 36.8; O2SAT 99
[2025-03-14] MEDS: INFLUENZA VACCINE 45 MCG/0.5 ML SYRINGE IM (10:56)
--- NOTE | 2025-03-14 11:20 | PC.NURSE ---
Consulted with mother concerning needs and she shared her ability to independently latch infant optimally without pain. Mother is feeding appropriately for growth of infant and understands stimulating to eat if needed. Infant has had appropriate feedings in the last 24 hours meets the outcomes for weight, output, blood sugar and jaundice at this time. Reinforced understanding of milk production, transition of milk, signs of adequate intake, transition of stool, prevention/relief of engorgement, plugged ducts, mastitis, responsive watching for feeding cues, the different methods of stimulating infant to breastfeed 1-3 hours after the start of the last feeding, community resources, and when to call a provider using the resource of the feeding sheet along with the mom and baby guide. Mother voiced understanding of the information shared, is confident to continue effectively her at home, when to call for assistance, denies any additional assistance or education at this time. [facility] Referral faxed to [facility] in [place]. Reported to the Primary RN.
[2025-03-15 10:23] VITALS: BP 118/66; PULSE 75; RESP 18; TEMP 36.8; O2SAT 100
== END 2025-03-14 12:15 | disposition home or self-care (01) | DRG 807 ==
LOC: ANHLDR 03-12 00:09 → ANHOB2 03-12 22:36
PROVIDERS: Obstetrics & Gynecology; Admitting Provider Obstetrics & Gynecology; Visit Provider Obstetrics & Gynecology
DX: O32.6XX0 Maternal care for compound presentation, not applicable or unspecified (principal); Z37.0 Single live birth; Z3A.40 40 weeks gestation of pregnancy; O70.1 Second degree perineal laceration during delivery; O69.81X0 Labor and delivery complicated by cord around neck, without compression, not applicable or unspecified; Z23 Encounter for immunization
CPT/HCPCS: 36415; 85014; 85018; 85025; 86593; 86850; 86900; 86901; 90471; 90656; A9270; G0008; J0290; J2405; J2590; J2795; J7120